=== PATIENT | male | born 1975 | race Caucasian/White ===

== ENCOUNTER 2023-10-26 03:03 | Observation (INO) | payer BC ==
[2023-10-26 03:17] VITALS: BMI 33.4
[2023-10-26] MEDS ORDERED: GLUCAGON 1 MG KIT IVPUSH ONE (03:25)
[2023-10-26] MEDS ORDERED: GLUCAGON 1 MG KIT ONE (03:26)
[2023-10-26] MEDS ORDERED: ONDANSETRON 4 MG/2 ML VIAL ONE (03:29)
[2023-10-26] MEDS ORDERED: ONDANSETRON 4 MG/2 ML VIAL IVPUSH ONE (03:33)
[2023-10-26] MEDS ORDERED: SODIUM CHLORIDE 0.9% 500 ML INFUS.BAG IV ONE ×3 (03:46→06:48)
[2023-10-26 03:54] LABS: VENOUS BASE EXCESS -3.5 mmol/L (-2-2); VENOUS O2 SATURATION 48.8 % (70-80); VENOUS PCO2 56.6 mmHg (38-52); VENOUS PH 7.254 (7.310-7.410)
[2023-10-26 03:58] LABS: BASO % 0.6 % (0-2.0); HEMATOCRIT 37.2 % (35.4-49); HEMOGLOBIN 12.8 GM/dL (11.7-16.9); LYMPH % 23.8 % (8-40); MCH 30.4 pg (25.7-33.7); MCHC 34.3 g/dl (32.0-35.9); MEAN CELL VOLUME 88.6 fl (80-96); MEAN PLT VOLUME 8.3 fl (7.5-11.1); MONO % 10.4 % (3.8-10.2); NEUT % 62.2 % (42.8-82.8); PLATELET COUNT 225 10^3/uL (134-434); RBC 4.19 M/mm3 (4.00-5.60); RDW 13.7 % (11.9-15.9); WHITE BLOOD COUNT 6.4 K/mm3 (4.0-10.0)
[2023-10-26] MEDS ORDERED: NALOXONE HCL 0.4 MG/ML VIAL IVPB ONE (04:14)
[2023-10-26] MEDS ORDERED: NALOXONE HCL 0.4 MG/ML VIAL ONE ×2 (04:19→04:20)
[2023-10-26 04:28] LABS: CHLORIDE 101 mmol/L (98-107); POTASSIUM 4.6 mmol/L (3.5-5.1); SODIUM 133 mmol/L (136-145)
[2023-10-26 04:30] LABS: CALCIUM 9.3 mg/dL (8.5-10.1)
[2023-10-26 04:31] LABS: ALBUMIN 3.6 g/dl (3.4-5.0); ANION GAP 8 mmol/L (4-13); BLOOD UREA NITROGEN 47.7 mg/dL (7-18); CO2 24 mmol/L (21-32); GLUCOSE,RANDOM 111 mg/dL (74-106); MAGNESIUM 2.2 mg/dL (1.8-2.4)
[2023-10-26 04:34] LABS: CREATININE 2.8 mg/dL (0.55-1.3); SGOT/AST 14 U/L (15-37); SGPT/ALT 16 U/L (13-61)
[2023-10-26 04:36] LABS: BILIRUBIN,TOTAL 0.4 mg/dL (0.2-1); TOT PROT 6.7 g/dl (6.4-8.2)
[2023-10-26 04:37] LABS: ALK PHOS 67 U/L (45-117)
[2023-10-26] MEDS ORDERED: DEXAMETHASONE LIQUID 0.5 MG/5 ML PO ONE (05:18)
[2023-10-26] MEDS ORDERED: ALBUTEROL SO4 2.5/IPRATROPIUM 0.5 INH SOL 3 ML VIAL.NEB. NEB ONE ×2 (05:19→05:28)
[2023-10-26] MEDS ORDERED: DEXAMETHASONE SOD PHOSPHATE 10 MG/1 ML VIAL ONE (05:28)
[2023-10-26 05:40] LABS: N-TERMINAL BNP 72.1 pg/ml (5-125)
[2023-10-26] MEDS ORDERED: LOPERAMIDE HCL 2 MG CAPSULE PO ONE (05:44)
[2023-10-26] MEDS ORDERED: LOPERAMIDE HCL 2 MG CAPSULE ONE (05:50)
[2023-10-26] MEDS ORDERED: NOREPINEPHRINE BITARTRATE 4,000 MCG in DEXTROSE 5%-WATER - 496 ML IV SCH (06:45)
[2023-10-26] MEDS: SODIUM CHLORIDE 1,000 ML IV SCH (09:35)
[2023-10-26] MEDS ORDERED: ALBUTEROL SO4 HFA INHALER IH PRN (09:44)
[2023-10-26] MEDS ORDERED: PANTOPRAZOLE 40 MG TABLET PO SCH (10:00)
[2023-10-26] MEDS ORDERED: LORATADINE 10 MG TABLET ONE (10:40)
[2023-10-26] MEDS ORDERED: GABAPENTIN 100 MG CAPSULE ONE (10:40)
[2023-10-26] MEDS ORDERED: THIAMINE HCL 100 MG TABLET (FP) ONE (10:40)
[2023-10-26] MEDS ORDERED: FAMOTIDINE 20 MG TABLET ONE ×2 (10:40→21:28)
[2023-10-26] MEDS ORDERED: DULoxetine HCL 30 MG CAPSULE.DR PO ONE (10:40)
[2023-10-26] MEDS ORDERED: PANTOPRAZOLE 40 MG TABLET PO ONE (10:40)
[2023-10-26] MEDS ORDERED: DIVALPROEX SODIUM 500 MG TABLET E.C. ONE (10:40)
[2023-10-26] MEDS: FOLIC ACID 1 MG TABLET (FP) PO SCH (10:48)
[2023-10-26] MEDS: DULoxetine HCL 30 MG CAPSULE.DR PO SCH (10:48)
[2023-10-26] MEDS: FAMOTIDINE 20 MG TABLET PO SCH ×2 (10:48→21:39)
[2023-10-26] MEDS: GABAPENTIN 300 MG CAPSULE PO SCH ×2 (10:48→21:38)
[2023-10-26] MEDS: LORATADINE 10 MG TABLET PO SCH (10:48)
[2023-10-26] MEDS: DIVALPROEX SODIUM 500 MG TABLET E.C. PO SCH ×2 (10:48→21:38)
[2023-10-26] MEDS: NALTREXONE HCL 50 MG TABLET PO SCH (10:49)
[2023-10-26] MEDS: THIAMINE HCL 100 MG TABLET (FP) PO SCH (10:49)
[2023-10-26 12:25] LABS: PHENCYCLIDINE,URINE NEGATIVE (NEGATIVE)
[2023-10-26 12:26] LABS: COCAINE, UR NEGATIVE (NEGATIVE); METHADONE, UR NEGATIVE (NEGATIVE); OPIATES, URI NEGATIVE (NEGATIVE)
[2023-10-26 12:28] LABS: URINE BARBITURATES NEGATIVE (NEGATIVE)
[2023-10-26 12:30] LABS: URINE AMPHETAMINES NEGATIVE (NEGATIVE); URINE BENZODIAZEPINES POSITIVE (NEGATIVE)
[2023-10-26] MEDS ORDERED: HEPARIN NA (PORCINE) 5,000 UNITS/ML 1ML VIAL ONE ×2 (15:58→21:28)
[2023-10-26] MEDS: HEPARIN NA (PORCINE) 5,000 UNITS/ML 1ML VIAL SQ SCH ×2 (16:02→21:39)
[2023-10-26 16:22] LABS: PH,URINE 5.5 (5.0-8.0); URINE APPEARANCE CLEAR; URINE BILIRUBIN NEGATIVE (NEGATIVE); URINE COLOR YELLOW; URINE GLUCOSE (UA) NEGATIVE (NEGATIVE); URINE KETONE NEGATIVE (NEGATIVE); URINE LEUK ESTERASE NEGATIVE (NEGATIVE); URINE NITRITE NEGATIVE (NEGATIVE); URINE PROTEIN NEGATIVE (NEGATIVE); URINE UROBILINOGEN 0.2 mg/dL (0.2-1.0)
[2023-10-26 20:01] LABS: URINE UREA NITROGEN 728 mg/dL (350-1000)
[2023-10-26] MEDS ORDERED: ATORVASTATIN CA 40 MG TABLET (FP) ONE (21:28)
[2023-10-26] MEDS ORDERED: GABAPENTIN 300 MG CAPSULE ONE (21:28)
[2023-10-26] MEDS ORDERED: DIVALPROEX SODIUM 250 MG TABLET E.C. ONE (21:28)
[2023-10-26] MEDS ORDERED: ATORVASTATIN CA 40 MG TABLET (FP) PO SCH (22:00)
[2023-10-27] MEDS: SODIUM CHLORIDE 1,000 ML IV SCH (02:57)
[2023-10-27] MEDS ORDERED: ACETAMINOPHEN 325 MG TABLET (FP) PO PRN (03:10)
[2023-10-27] MEDS ORDERED: MELATONIN 5 MG TABLETS PO PRN (03:10)
[2023-10-27] MEDS ORDERED: MELATONIN 5 MG TABLETS PO ONE (03:10)
[2023-10-27] MEDS ORDERED: ACETAMINOPHEN 325 MG TABLET (FP) PO ONE (03:11)
[2023-10-27] MEDS ORDERED: guaiFENesin/D-METHORPHAN HB 10 ML UNIT-DOSE CUPS PO PRN (03:12)
[2023-10-27] MEDS: HEPARIN NA (PORCINE) 5,000 UNITS/ML 1ML VIAL SQ SCH (06:02)
[2023-10-27 07:52] LABS: BASO % 0.2 % (0-2.0); EOS % 0.1 % (0-4.5); HEMATOCRIT 32.7 % (35.4-49); LYMPH % 16.2 % (8-40); MCH 30.2 pg (25.7-33.7); MCHC 33.6 g/dl (32.0-35.9); MEAN CELL VOLUME 89.9 fl (80-96); MEAN PLT VOLUME 8.7 fl (7.5-11.1); MONO % 8.6 % (3.8-10.2); NEUT % 74.9 % (42.8-82.8); PLATELET COUNT 184 10^3/uL (134-434); RBC 3.63 M/mm3 (4.00-5.60); RDW 13.4 % (11.9-15.9); WHITE BLOOD COUNT 9.2 K/mm3 (4.0-10.0)
[2023-10-27 08:32] LABS: POTASSIUM 4.6 mmol/L (3.5-5.1)
[2023-10-27 08:35] LABS: ALBUMIN 3.1 g/dl (3.4-5.0); BLOOD UREA NITROGEN 37.1 mg/dL (7-18); MAGNESIUM 1.8 mg/dL (1.8-2.4)
[2023-10-27 08:38] LABS: CREATININE 1.6 mg/dL (0.55-1.3)
[2023-10-27 08:39] LABS: BILIRUBIN,TOTAL 0.2 mg/dL (0.2-1); TOT PROT 5.9 g/dl (6.4-8.2)
[2023-10-27 08:45] LABS: CALCIUM 7.9 mg/dL (8.5-10.1)
[2023-10-27] MEDS: DULoxetine HCL 30 MG CAPSULE.DR PO SCH (10:25)
[2023-10-27] MEDS: LORATADINE 10 MG TABLET PO SCH (10:26)
[2023-10-27] MEDS: GABAPENTIN 300 MG CAPSULE PO SCH (10:26)
[2023-10-27] MEDS: FOLIC ACID 1 MG TABLET (FP) PO SCH (10:26)
[2023-10-27] MEDS: THIAMINE HCL 100 MG TABLET (FP) PO SCH (10:26)
[2023-10-27] MEDS: FAMOTIDINE 20 MG TABLET PO SCH (10:26)
[2023-10-27] MEDS: DIVALPROEX SODIUM 500 MG TABLET E.C. PO SCH ×2 (10:31→11:30)
[2023-10-27] MEDS: NALTREXONE HCL 50 MG TABLET PO SCH ×2 (10:31→11:30)
[2023-10-27 10:43] VITALS: BP 138/86; PULSE 72; RESP 18; TEMP 98.1
== END 2023-10-27 13:00 | disposition home or self-care (01) ==
LOC: JER 03:03 → INTOOBSV 04:57 → JERBED 04:57 → UNDOADMOB 04:57 → JERBED 09:18 → UNDOADMOB 09:18 → OBSVTOIN 10:56 → INTOOBSV 10:56 → JERBED 10-27 01:59 → J4W 10-27 01:59 → JERBED 10-27 09:52 → J4W 10-27 09:52
PROVIDERS: ADMIT Internal Medicine Pulmonary Disease; ATTEND Internal Medicine
PROC: 3E0F7GC Introduction of Other Therapeutic Substance into Respiratory Tract, Via Natural or Artificial Opening (ICD-10-PCS; principal; 2023-10-27)
PROC: 3E033GC Introduction of Other Therapeutic Substance into Peripheral Vein, Percutaneous Approach (ICD-10-PCS; 2023-10-27)
PROC: 3E023GC Introduction of Other Therapeutic Substance into Muscle, Percutaneous Approach (ICD-10-PCS; 2023-10-27)
PROC: 3E033NZ Introduction of Analgesics, Hypnotics, Sedatives into Peripheral Vein, Percutaneous Approach (ICD-10-PCS; 2023-10-27)
PROC: 3E0337Z Introduction of Electrolytic and Water Balance Substance into Peripheral Vein, Percutaneous Approach (ICD-10-PCS; 2023-10-27)
DX: I95.2 Hypotension due to drugs (principal); I12.9 Hypertensive chronic kidney disease with stage 1 through stage 4 chronic kidney disease, or unspecified chronic kidney disease; M87.9 Osteonecrosis, unspecified; N18.9 Chronic kidney disease, unspecified; F10.21 Alcohol dependence, in remission; T50.991A Poisoning by other drugs, medicaments and biological substances, accidental (unintentional), initial encounter; Y92.008 Other place in unspecified non-institutional (private) residence as the place of occurrence of the external cause; Y99.8 Other external cause status
CPT/HCPCS: 0241U-QW; 36415; 70450-TC; 71045-TC-FY; 71250-TC; 80053; 80307; 81003; 82570; 82607; 82746; 82803; 82962; 83605; 83735; 83880; 84300; 84443; 84484; 84540; 85025; 93005; 93010; 99285-25; G0378; J1644